=== PATIENT | male | born 1950 | race Caucasian/White ===

== ENCOUNTER 2022-01-30 07:09 | Inpatient (IN) | payer MEDICAID, OTHER ==
[~2022-01-30] VITALS: Ht 162.6 cm; Wt 70.3 kg
[2022-01-30] MEDS ORDERED: DEXTROSE 50% WATER 50ML SYRINGE IV ONE ×4 (08:30→13:30)
[2022-01-30] MEDS ORDERED: ATROPINE SULFATE 1MG/10ML SYR IV PRN (11:15)
[2022-01-30 11:33] LABS: EOSINOPHILS % 2.4 % (0.0-5.0); HEMATOCRIT. 37.5 % (42.0-52.0); HEMOGLOBIN. 12.4 g/dL (14.0-18.0); MEAN CORPUSCULAR HEMOGLOBIN 31.2 pg (28.0-32.0); MEAN CORPUSCULAR VOLUME 94.6 fL (80.0-94.0); MEAN PLATELET VOLUME 7.7 fl (7.4-10.4); NEUTROPHILS % 79.6 % (40.0-76.0); PLATELET 281 x1000/uL (130-400); RED BLOOD CELL COUNT 3.97 mill/uL (4.7-6.1); RED CELL DISTRIBUTION WIDTH 15.1 % (11.6-14.6)
[2022-01-30 11:36] LABS: CHLORIDE 106 mEq/L (98-107)
[2022-01-30 11:39] LABS: PROTHROMBIN TIME 10.9 sec (9.6-11.0)
[2022-01-30 13:17] LABS: CLARITY URINE CLEAR (CLEAR); COLOR URINE YELLOW (YELLOW); KETONES URINE NEGATIVE (NEGATIVE); LEUKOCYTE ESTERASE URINE TRACE (NEGATIVE); NITRITE URINE POSITIVE (NEGATIVE); OCCULT BLOOD URINE NEGATIVE (NEGATIVE); PH URINE 5.5 (4.5-8.0); PROTEIN URINE NEGATIVE (NEGATIVE); SPECIFIC GRAVITY URINE 1.014 (1.005-1.030); UROBILINOGEN URINE 0.2 E.U./dL (0.2-1.0)
[2022-01-30] MEDS ORDERED: DEXT 10% WATER 1,000 ML IV ONE (13:30)
[2022-01-30] MEDS ORDERED: DOPAMINE 400MG/250ML PREMIX 250 ML IV PRN (13:45)
[2022-01-30] MEDS ORDERED: DEXTROSE 10% WATER 500 ML IV SCH (19:00)
[2022-01-30] MEDS ORDERED: ONDANSETRON HCL 4MG/2ML INJ IV PRN (19:15)
[2022-01-30] MEDS ORDERED: CLONIDINE 0.1MG TABLET PO PRN (19:15)
[2022-01-30] MEDS ORDERED: DOCUSATE SODIUM 100MG CAPSULE PO PRN (19:15)
[2022-01-30] MEDS ORDERED: CEFTRIAXONE 1 G PREMIX 50 ML IV NR (19:15)
[2022-01-30] MEDS ORDERED: LORAZEPAM 0.5MG TABLET PO PRN (19:15)
[2022-01-30] MEDS ORDERED: HYDROCODONE/ACETAMINOPHEN 5/325MG TABLET PO PRN (19:15)
[2022-01-30] MEDS ORDERED: IPRATROPIUM/ALBUTEROL 0.5-3(2.5)MG/3ML NEB HHN PRN (19:15)
[2022-01-30] MEDS ORDERED: ACETAMINOPHEN 325MG TABLET PO PRN ×2 (19:15)
[2022-01-30] MEDS ORDERED: DEXTROSE 10% WATER 500 ML IV ONE (19:30)
[2022-01-30] MEDS ORDERED: NALOXONE HCL 0.4MG/ML VIAL IV PRN (19:30)
[2022-01-31 05:33] LABS: HEMOGLOBIN. 12.4 g/dL (14.0-18.0); MEAN CORPUSCULAR HEMOGLOBIN 31.2 pg (28.0-32.0); MEAN CORPUSCULAR VOLUME 92.7 fL (80.0-94.0); MEAN PLATELET VOLUME 7.5 fl (7.4-10.4); PLATELET 266 x1000/uL (130-400); RED BLOOD CELL COUNT 3.99 mill/uL (4.7-6.1)
[2022-01-31] MEDS ORDERED: DEXTROSE 50% WATER 50ML SYRINGE IV PRN (11:45)
[2022-01-31] MEDS ORDERED: CEFTRIAXONE 1,000 MG in DEXTROSE 5% WATER 50 ML IV SCH ×2 (12:00→21:00)
[2022-01-31] MEDS: INSULIN LISPRO 100 UNITS/ML SUBCUT SCH ×3 (12:41→22:56)
[2022-01-31] MEDS: BLOOD SUGAR DIAGNOSTIC STRIP TEST SCH ×2 (17:09→21:00)
[2022-01-31 18:08] VITALS: BP 138/74
[2022-01-31 18:11] LABS: PLATELET ESTIMATE NORMAL
[2022-01-31 18:30] VITALS: BP 138/74
[2022-01-31] MEDS: AMPICILLIN SOD/SULBACTAM NA 3 G in SODIUM CHLORIDE 0.9% 100 ML IV SCH (18:46)
[2022-01-31 20:00] VITALS: BP 123/66
[2022-01-31 21:04] LABS: CHLORIDE 104 mEq/L (98-107)
[2022-01-31 22:00] VITALS: BP 131/65
[2022-02-01] VITALS (11 sets, daily range): BP systolic 119–145; BP diastolic 54–71
[2022-02-01] MEDS: AMPICILLIN SOD/SULBACTAM NA 3 G in SODIUM CHLORIDE 0.9% 100 ML IV SCH ×4 (00:31→18:00)
[2022-02-01 00:33] LABS: PHOSPHORUS 3.3 mg/dL (2.5-4.9)
[2022-02-01 07:13] LABS: BASOPHILS % 1.1 % (0.0-2.0); EOSINOPHILS % 6.8 % (0.0-5.0); HEMATOCRIT. 35.8 % (42.0-52.0); HEMOGLOBIN. 12.1 g/dL (14.0-18.0); LYMPHOCYTES % 10.9 % (20.0-50.0); MEAN CORPUSCULAR VOLUME 91.5 fL (80.0-94.0); MEAN PLATELET VOLUME 7.8 fl (7.4-10.4); MONOCYTES % 9.7 % (2.0-8.0); NEUTROPHILS % 71.5 % (40.0-76.0); PLATELET 270 x1000/uL (130-400); RED BLOOD CELL COUNT 3.91 mill/uL (4.7-6.1); RED CELL DISTRIBUTION WIDTH 14.6 % (11.6-14.6)
[2022-02-01] MEDS: BLOOD SUGAR DIAGNOSTIC STRIP TEST SCH ×4 (07:30→21:48)
[2022-02-01] MEDS: INSULIN LISPRO 100 UNITS/ML SUBCUT SCH ×4 (08:00→21:00)
[2022-02-01] MEDS ORDERED: GLIP10TA10 MT (11:15)
[2022-02-01] MEDS ORDERED: HYDR25TA MT (11:15)
[2022-02-01] MEDS ORDERED: FINA5TAB11 MT (11:15)
[2022-02-01] MEDS ORDERED: ATOR20TA65 MT (11:15)
[2022-02-01] MEDS ORDERED: TAMS-11 MT (11:15)
[2022-02-01] MEDS ORDERED: LISI10TA26 MT (11:15)
[2022-02-01] MEDS ORDERED: METF-416 MT (11:15)
[2022-02-01] MEDS ORDERED: FERR325T6 MT (11:15)
[2022-02-01] MEDS ORDERED: INSNPH SUBCUT (11:15)
[2022-02-01] MEDS: FINASTERIDE 5MG TABLET PO SCH (12:13)
[2022-02-01] MEDS: TAMSULOSIN HCL 0.4MG SR CAPSULE PO SCH (12:13)
[2022-02-01] MEDS: LISINOPRIL 10MG TABLET PO SCH (12:14)
[2022-02-01] MEDS: HYDROCHLOROTHIAZIDE 25MG TABLET PO SCH (12:14)
[2022-02-01 16:23] LABS: CHLORIDE 103 mEq/L (98-107)
[2022-02-01] MEDS ORDERED: POTASSIUM CHLORIDE 20MEQ/PACKET PO NR (17:45)
[2022-02-01] MEDS: ATORVASTATIN CALCIUM 20MG TABLET PO SCH (21:55)
[2022-02-02] MEDS: AMPICILLIN SOD/SULBACTAM NA 3 G in SODIUM CHLORIDE 0.9% 100 ML IV SCH ×4 (00:45→18:41)
[2022-02-02 06:58] LABS: BASOPHILS % 0.9 % (0.0-2.0); EOSINOPHILS % 5.6 % (0.0-5.0); HEMATOCRIT. 36.5 % (42.0-52.0); HEMOGLOBIN. 12.6 g/dL (14.0-18.0); LYMPHOCYTES % 10.7 % (20.0-50.0); MEAN CORPUSCULAR HEMOGLOBIN 31.4 pg (28.0-32.0); MEAN CORPUSCULAR VOLUME 91.2 fL (80.0-94.0); MEAN PLATELET VOLUME 7.3 fl (7.4-10.4); MONOCYTES % 10.1 % (2.0-8.0); NEUTROPHILS % 72.7 % (40.0-76.0); PLATELET 275 x1000/uL (130-400); RED CELL DISTRIBUTION WIDTH 14.3 % (11.6-14.6)
[2022-02-02 08:00] VITALS: BP 114/55
[2022-02-02] MEDS: INSULIN LISPRO 100 UNITS/ML SUBCUT SCH ×4 (08:00→21:47)
[2022-02-02] MEDS: BLOOD SUGAR DIAGNOSTIC STRIP TEST SCH ×4 (08:14→21:35)
[2022-02-02] MEDS: FINASTERIDE 5MG TABLET PO SCH (09:28)
[2022-02-02] MEDS: TAMSULOSIN HCL 0.4MG SR CAPSULE PO SCH (09:28)
[2022-02-02] MEDS: HYDROCHLOROTHIAZIDE 25MG TABLET PO SCH (09:28)
[2022-02-02] MEDS: LISINOPRIL 10MG TABLET PO SCH (09:29)
[2022-02-02 10:11] LABS: CHLORIDE 101 mEq/L (98-107)
[2022-02-02] MEDS ORDERED: TAMS-11 MT (11:53)
[2022-02-02] MEDS ORDERED: FINA5TAB11 MT (11:53)
[2022-02-02 12:00] VITALS: BP 104/52
[2022-02-02] MEDS ORDERED: LIDOCAINE HCL 1% 10 MG/ML 10ML VIAL ONE (13:34)
[2022-02-02 16:00] VITALS: BP 130/61
[2022-02-02] MEDS: ATORVASTATIN CALCIUM 20MG TABLET PO SCH (21:40)
[2022-02-03] MEDS: AMPICILLIN SOD/SULBACTAM NA 3 G in SODIUM CHLORIDE 0.9% 100 ML IV SCH ×4 (00:46→18:22)
[2022-02-03] MEDS: BLOOD SUGAR DIAGNOSTIC STRIP TEST SCH (06:35)
[2022-02-03] MEDS: INSULIN LISPRO 100 UNITS/ML SUBCUT SCH (06:49)
[2022-02-03 08:00] VITALS: BP 140/72
[2022-02-03] MEDS: FINASTERIDE 5MG TABLET PO SCH (10:22)
[2022-02-03] MEDS: LISINOPRIL 10MG TABLET PO SCH (10:22)
[2022-02-03] MEDS: FERROUS SULFATE 325MG TABLET PO SCH (10:23)
[2022-02-03] MEDS: TAMSULOSIN HCL 0.4MG SR CAPSULE PO SCH (10:23)
[2022-02-03] MEDS: HYDROCHLOROTHIAZIDE 25MG TABLET PO SCH (10:24)
[2022-02-03 16:01] VITALS: BP 99/71
[2022-02-03] MEDS: ATORVASTATIN CALCIUM 20MG TABLET PO SCH (21:15)
[2022-02-04] MEDS: AMPICILLIN SOD/SULBACTAM NA 3 G in SODIUM CHLORIDE 0.9% 100 ML IV SCH ×5 (00:39→23:58)
[2022-02-04] MEDS: TAMSULOSIN HCL 0.4MG SR CAPSULE PO SCH (08:18)
[2022-02-04] MEDS: FINASTERIDE 5MG TABLET PO SCH (08:19)
[2022-02-04] MEDS: LISINOPRIL 10MG TABLET PO SCH (08:19)
[2022-02-04] MEDS: HYDROCHLOROTHIAZIDE 25MG TABLET PO SCH (08:31)
[2022-02-04 20:00] VITALS: BP 122/69
[2022-02-04] MEDS: ATORVASTATIN CALCIUM 20MG TABLET PO SCH (20:44)
[2022-02-04] MEDS ORDERED: DEXTROSE 50% WATER 50ML SYRINGE IV PRN (23:15)
[2022-02-04] MEDS: BLOOD SUGAR DIAGNOSTIC STRIP TEST SCH (23:23)
[2022-02-04] MEDS: INSULIN LISPRO 100 UNITS/ML SUBCUT SCH (23:27)
[2022-02-05] VITALS: BP_SYST 122; BP_SYST 123; BP_SYST 127; BP_DIAS 65; BP_DIAS 71; BP_DIAS 88
[2022-02-05 04:00] VITALS: BP 131/61
[2022-02-05] MEDS: BLOOD SUGAR DIAGNOSTIC STRIP TEST SCH ×4 (06:27→20:31)
[2022-02-05] MEDS: AMPICILLIN SOD/SULBACTAM NA 3 G in SODIUM CHLORIDE 0.9% 100 ML IV SCH ×3 (06:34→18:08)
[2022-02-05] MEDS: TAMSULOSIN HCL 0.4MG SR CAPSULE PO SCH (08:08)
[2022-02-05] MEDS: HYDROCHLOROTHIAZIDE 25MG TABLET PO SCH (08:08)
[2022-02-05] MEDS: FERROUS SULFATE 325MG TABLET PO SCH (08:08)
[2022-02-05] MEDS: FINASTERIDE 5MG TABLET PO SCH (08:08)
[2022-02-05] MEDS: LISINOPRIL 10MG TABLET PO SCH (08:09)
[2022-02-05] MEDS: INSULIN LISPRO 100 UNITS/ML SUBCUT SCH ×4 (08:53→20:31)
[2022-02-05 20:00] VITALS: BP 108/52
[2022-02-05 20:09] VITALS: BP 108/52
[2022-02-05] MEDS: ATORVASTATIN CALCIUM 20MG TABLET PO SCH (20:27)
== END 2022-02-05 21:59 | disposition home health service (06) | DRG 720 ==
LOC: ER 07:09 → MICUSO 13:01 → EDBEDREQ 13:02 → EDBEDREQSVC 13:02 → EDBEDREQTM 13:02 → EDBEDREQSVC 14:02 → 5EST 01-31 18:17 → 3WST 02-02 18:32
PROVIDERS: ADMIT Family Medicine Adult Medicine; ATTEND Family Medicine Adult Medicine
PROC: 02HV33Z Insertion of Infusion Device into Superior Vena Cava, Percutaneous Approach (ICD-10-PCS; principal; 2022-02-02)
PROC: B5181ZA Fluoroscopy of Superior Vena Cava using Low Osmolar Contrast, Guidance (ICD-10-PCS; 2022-02-02)
PROC: B548ZZA Ultrasonography of Superior Vena Cava, Guidance (ICD-10-PCS; 2022-02-02)
DX: A41.9 Sepsis, unspecified organism (principal); G93.41 Metabolic encephalopathy; E11.649 Type 2 diabetes mellitus with hypoglycemia without coma; G90.8 Other disorders of autonomic nervous system; I50.32 Chronic diastolic (congestive) heart failure; I11.0 Hypertensive heart disease with heart failure; R00.1 Bradycardia, unspecified; N39.0 Urinary tract infection, site not specified; E78.5 Hyperlipidemia, unspecified; B95.5 Unspecified streptococcus as the cause of diseases classified elsewhere; H26.9 Unspecified cataract; D64.9 Anemia, unspecified; E78.00 Pure hypercholesterolemia, unspecified; Z86.73 Personal history of transient ischemic attack (TIA), and cerebral infarction without residual deficits; Z92.3 Personal history of irradiation; Z92.21 Personal history of antineoplastic chemotherapy; Z79.84 Long term (current) use of oral hypoglycemic drugs; Z79.4 Long term (current) use of insulin; Z85.028 Personal history of other malignant neoplasm of stomach
CPT/HCPCS: 36415; 36573; 70486; 71045; 80048; 80053; 81003; 82533; 82962; 83036; 83735; 84100; 84132; 84145; 84443; 84484; 85025; 87426; 93005; 93306; 97162; 99291; C1725; J0295; J0696; J1815; J3490; J7050; J7060